=== PATIENT | male | born 1965 | race Caucasian/White ===

== ENCOUNTER 2016-08-19 08:28 | Outpatient (CLI) | payer SELFPAY | END 2016-08-19 08:30 | LOC: LAB 08:28 | PROVIDERS: ATTEND Internal Medicine Cardiovascular Disease | DX: Z51.81 Encounter for therapeutic drug level monitoring (principal); Z79.01 Long term (current) use of anticoagulants; I48.2 Chronic atrial fibrillation; Z95.4 Presence of other heart-valve replacement | CPT/HCPCS: 36415; 85610 ==

== ENCOUNTER 2016-08-27 08:29 | Outpatient (CLI) | payer SELFPAY | END 2016-08-27 08:30 | LOC: LAB 08:29 | PROVIDERS: ATTEND Internal Medicine Cardiovascular Disease | DX: I48.2 Chronic atrial fibrillation (principal); Z95.4 Presence of other heart-valve replacement | CPT/HCPCS: 36415; 85610 ==

== ENCOUNTER 2016-09-08 10:04 | Outpatient (CLI) | payer SELFPAY | END 2016-09-08 10:05 | LOC: LAB 10:04 | PROVIDERS: ATTEND Internal Medicine Cardiovascular Disease | DX: I48.2 Chronic atrial fibrillation (principal); Z95.2 Presence of prosthetic heart valve | CPT/HCPCS: 36415; 85610 ==

== ENCOUNTER 2016-09-13 09:22 | Outpatient (CLI) | payer SELFPAY | END 2016-09-13 09:23 | LOC: LAB 09:22 | PROVIDERS: ATTEND Internal Medicine Cardiovascular Disease | DX: Z51.81 Encounter for therapeutic drug level monitoring (principal); Z95.4 Presence of other heart-valve replacement; Z79.01 Long term (current) use of anticoagulants | CPT/HCPCS: 36415; 85610 ==

== ENCOUNTER 2016-09-22 08:33 | Outpatient (CLI) | payer SELFPAY | END 2016-09-22 08:34 | LOC: LAB 08:33 | PROVIDERS: ATTEND Internal Medicine Cardiovascular Disease | DX: I48.2 Chronic atrial fibrillation (principal); Z95.4 Presence of other heart-valve replacement | CPT/HCPCS: 36415; 85610 ==

== ENCOUNTER 2016-10-11 08:42 | Outpatient (CLI) | payer SELFPAY | END 2016-10-11 08:43 | LOC: LAB 08:42 | PROVIDERS: ATTEND Internal Medicine Cardiovascular Disease | DX: Z51.81 Encounter for therapeutic drug level monitoring (principal); Z79.01 Long term (current) use of anticoagulants; I48.2 Chronic atrial fibrillation; Z95.4 Presence of other heart-valve replacement | CPT/HCPCS: 36415; 85610 ==

== ENCOUNTER 2016-10-29 08:51 | Outpatient (CLI) | payer SELFPAY | END 2016-10-29 08:52 | LOC: LAB 08:51 | PROVIDERS: ATTEND Internal Medicine Cardiovascular Disease | DX: Z51.81 Encounter for therapeutic drug level monitoring (principal); Z79.01 Long term (current) use of anticoagulants; I48.2 Chronic atrial fibrillation; Z95.4 Presence of other heart-valve replacement | CPT/HCPCS: 36415; 85610 ==

== ENCOUNTER 2016-11-23 08:34 | Outpatient (CLI) | payer SELFPAY | END 2016-11-23 08:35 | LOC: LAB 08:34 | PROVIDERS: ATTEND Internal Medicine Cardiovascular Disease | DX: Z51.81 Encounter for therapeutic drug level monitoring (principal); Z79.01 Long term (current) use of anticoagulants; I48.2 Chronic atrial fibrillation; Z95.4 Presence of other heart-valve replacement | CPT/HCPCS: 36415; 85610 ==

== ENCOUNTER 2016-12-20 09:30 | Outpatient (CLI) | payer SELFPAY | END 2016-12-20 09:31 | LOC: LAB 09:30 | PROVIDERS: ATTEND Internal Medicine Cardiovascular Disease | DX: I48.2 Chronic atrial fibrillation (principal); Z95.4 Presence of other heart-valve replacement | CPT/HCPCS: 36415; 85610 ==

== ENCOUNTER 2017-01-20 08:15 | Outpatient (CLI) | payer SELFPAY | END 2017-01-20 09:00 | LOC: LAB 08:15 | PROVIDERS: ATTEND Internal Medicine Cardiovascular Disease | DX: I48.2 Chronic atrial fibrillation (principal); Z95.4 Presence of other heart-valve replacement | CPT/HCPCS: 36415; 85610 ==

== ENCOUNTER 2017-02-21 08:09 | Outpatient (CLI) | payer SELFPAY | END 2017-02-21 08:15 | LOC: LAB 08:09 | PROVIDERS: ATTEND Internal Medicine Cardiovascular Disease | DX: I48.2 Chronic atrial fibrillation (principal); Z95.4 Presence of other heart-valve replacement | CPT/HCPCS: 36415; 85610 ==

== ENCOUNTER 2017-03-25 08:33 | Outpatient (CLI) | payer SELFPAY | END 2017-03-25 08:34 | LOC: LAB 08:33 | PROVIDERS: ATTEND Internal Medicine Cardiovascular Disease | DX: I48.2 Chronic atrial fibrillation (principal); Z95.4 Presence of other heart-valve replacement | CPT/HCPCS: 36415; 85610 ==

== ENCOUNTER 2017-04-06 08:30 | Outpatient (CLI) | payer SELFPAY | END 2017-04-06 08:32 | LOC: LAB 08:30 | PROVIDERS: ATTEND Internal Medicine Cardiovascular Disease | DX: I48.2 Chronic atrial fibrillation (principal); Z95.4 Presence of other heart-valve replacement | CPT/HCPCS: 36415; 85610 ==

== ENCOUNTER 2017-04-21 08:34 | Outpatient (CLI) | payer SELFPAY | END 2017-04-21 08:35 | LOC: LAB 08:34 | PROVIDERS: ATTEND Internal Medicine Cardiovascular Disease | DX: I48.2 Chronic atrial fibrillation (principal); Z95.4 Presence of other heart-valve replacement | CPT/HCPCS: 36415; 85610 ==

== ENCOUNTER → 2017-05-23 | Outpatient (CLI) | payer SELFPAY | LOC: LAB 08:59 | PROVIDERS: ATTEND Internal Medicine Cardiovascular Disease | DX: I48.2 Chronic atrial fibrillation (principal); Z95.2 Presence of prosthetic heart valve | CPT/HCPCS: 36415; 85610 ==

== ENCOUNTER 2017-06-03 08:50 | Outpatient (CLI) | payer SELFPAY | END 2017-06-03 08:52 | LOC: LAB 08:50 | PROVIDERS: ATTEND Internal Medicine Cardiovascular Disease | DX: I48.2 Chronic atrial fibrillation (principal); Z95.4 Presence of other heart-valve replacement | CPT/HCPCS: 36415; 85610 ==

== ENCOUNTER 2017-06-20 09:13 | Outpatient (CLI) | payer SELFPAY | END 2017-06-20 09:14 | LOC: LAB 09:13 | PROVIDERS: ATTEND Internal Medicine Cardiovascular Disease | DX: I48.2 Chronic atrial fibrillation (principal); Z95.4 Presence of other heart-valve replacement | CPT/HCPCS: 36415; 85610 ==

== ENCOUNTER 2017-07-14 08:54 | Outpatient (CLI) | payer SELFPAY | END 2017-07-14 10:02 | LOC: LAB 08:54 | PROVIDERS: ATTEND Internal Medicine Cardiovascular Disease | DX: I48.2 Chronic atrial fibrillation (principal); Z95.4 Presence of other heart-valve replacement | CPT/HCPCS: 36415; 85610 ==

== ENCOUNTER 2017-08-19 13:21 | Outpatient (CLI) | payer OTHER | END 2017-08-19 13:22 | LOC: LAB 13:21 | PROVIDERS: ATTEND Internal Medicine Cardiovascular Disease | DX: I48.2 Chronic atrial fibrillation (principal); Z95.4 Presence of other heart-valve replacement | CPT/HCPCS: 36415; 85610 ==

== ENCOUNTER 2017-08-30 13:41 | Outpatient (CLI) | payer OTHER | END 2017-08-30 13:42 | LOC: LAB 13:41 | PROVIDERS: ATTEND Internal Medicine Cardiovascular Disease | DX: I48.2 Chronic atrial fibrillation (principal); Z95.4 Presence of other heart-valve replacement | CPT/HCPCS: 36415; 85610 ==

== ENCOUNTER 2017-09-01 09:32 | Outpatient (CLI) | payer OTHER | END 2017-09-01 09:33 | LOC: LAB 09:32 | PROVIDERS: ATTEND Internal Medicine Cardiovascular Disease | DX: I48.2 Chronic atrial fibrillation (principal); Z95.4 Presence of other heart-valve replacement | CPT/HCPCS: 36415; 85610 ==

== ENCOUNTER 2017-09-02 14:36 | Outpatient (CLI) | payer OTHER | END 2017-09-02 14:37 | LOC: LAB 14:36 | PROVIDERS: ATTEND Internal Medicine Cardiovascular Disease | DX: I48.2 Chronic atrial fibrillation (principal); Z95.4 Presence of other heart-valve replacement | CPT/HCPCS: 36415; 85610 ==

== ENCOUNTER 2017-09-05 15:24 | Outpatient (CLI) | payer OTHER | END 2017-09-05 15:26 | LOC: LAB 15:24 | PROVIDERS: ATTEND Internal Medicine Cardiovascular Disease | DX: I48.2 Chronic atrial fibrillation (principal); Z95.4 Presence of other heart-valve replacement | CPT/HCPCS: 36415; 85610 ==

== ENCOUNTER 2017-09-07 08:55 | Outpatient (CLI) | payer OTHER | END 2017-09-07 08:56 | LOC: LAB 08:55 | PROVIDERS: ATTEND Internal Medicine Cardiovascular Disease | DX: I48.2 Chronic atrial fibrillation (principal); Z95.4 Presence of other heart-valve replacement | CPT/HCPCS: 36415; 85610 ==

== ENCOUNTER 2017-09-09 08:52 | Outpatient (CLI) | payer OTHER | END 2017-09-09 08:53 | LOC: LAB 08:52 | PROVIDERS: ATTEND Internal Medicine Cardiovascular Disease | DX: I48.2 Chronic atrial fibrillation (principal); Z95.4 Presence of other heart-valve replacement | CPT/HCPCS: 36415; 85610 ==

== ENCOUNTER 2017-09-12 09:07 | Outpatient (CLI) | payer OTHER | END 2017-09-12 09:10 | LOC: LAB 09:07 | PROVIDERS: ATTEND Internal Medicine Cardiovascular Disease | DX: I48.2 Chronic atrial fibrillation (principal); Z95.4 Presence of other heart-valve replacement | CPT/HCPCS: 36415; 85610 ==

== ENCOUNTER 2017-09-20 09:10 | Outpatient (CLI) | payer OTHER | END 2017-09-20 09:11 | LOC: LAB 09:10 | PROVIDERS: ATTEND Internal Medicine Cardiovascular Disease | DX: I48.2 Chronic atrial fibrillation (principal); Z95.4 Presence of other heart-valve replacement | CPT/HCPCS: 36415; 85610 ==

== ENCOUNTER 2017-09-27 08:48 | Outpatient (CLI) | payer OTHER | END 2017-09-27 08:50 | LOC: LAB 08:48 | PROVIDERS: ATTEND Internal Medicine Cardiovascular Disease | DX: I48.2 Chronic atrial fibrillation (principal); Z95.4 Presence of other heart-valve replacement | CPT/HCPCS: 36415; 85610 ==

== ENCOUNTER 2017-10-06 09:04 | Outpatient (CLI) | payer OTHER | END 2017-10-06 09:05 | LOC: LAB 09:04 | PROVIDERS: ATTEND Internal Medicine Cardiovascular Disease | DX: Z95.4 Presence of other heart-valve replacement (principal) | CPT/HCPCS: 36415; 85610 ==

== ENCOUNTER 2017-10-21 11:03 | Outpatient (CLI) | payer OTHER | END 2017-10-21 11:04 | LOC: LAB 11:03 | PROVIDERS: ATTEND Internal Medicine Cardiovascular Disease | DX: Z95.4 Presence of other heart-valve replacement (principal) | CPT/HCPCS: 36415; 85610 ==

== ENCOUNTER 2017-10-24 10:13 | Outpatient (CLI) | payer OTHER | END 2017-10-24 10:14 | LOC: LAB 10:13 | PROVIDERS: ATTEND Internal Medicine Cardiovascular Disease | DX: Z95.4 Presence of other heart-valve replacement (principal) | CPT/HCPCS: 36415; 85610 ==

== ENCOUNTER 2017-11-02 08:41 | Outpatient (CLI) | payer OTHER | END 2017-11-02 08:42 | LOC: LAB 08:41 | PROVIDERS: ATTEND Internal Medicine Cardiovascular Disease | DX: Z95.4 Presence of other heart-valve replacement (principal) | CPT/HCPCS: 36415; 85610 ==

== ENCOUNTER 2017-11-10 10:07 | Outpatient (CLI) | payer OTHER | END 2017-11-10 10:10 | LOC: LAB 10:07 | PROVIDERS: ATTEND Internal Medicine Cardiovascular Disease | DX: Z95.4 Presence of other heart-valve replacement (principal) | CPT/HCPCS: 36415; 85610 ==

== ENCOUNTER 2017-11-25 08:55 | Outpatient (CLI) | payer OTHER | END 2017-11-25 08:56 | LOC: LAB 08:55 | PROVIDERS: ATTEND Internal Medicine Cardiovascular Disease | DX: Z95.4 Presence of other heart-valve replacement (principal) | CPT/HCPCS: 36415; 85610 ==

== ENCOUNTER 2017-12-16 11:38 | Outpatient (CLI) | payer OTHER | END 2017-12-16 12:29 | LOC: LAB 11:38 | PROVIDERS: ATTEND Internal Medicine Cardiovascular Disease | DX: Z95.4 Presence of other heart-valve replacement (principal) | CPT/HCPCS: 36415; 85610 ==

== ENCOUNTER 2017-12-19 07:21 | Outpatient (CLI) | payer OTHER | END 2017-12-19 12:02 | LOC: LAB 07:21 | PROVIDERS: ATTEND Internal Medicine Cardiovascular Disease | DX: Z95.4 Presence of other heart-valve replacement (principal) | CPT/HCPCS: 36415; 85610 ==

== ENCOUNTER 2018-01-09 14:03 | Outpatient (CLI) | payer OTHER | END 2018-01-09 14:04 | LOC: LAB 14:03 | PROVIDERS: ATTEND Internal Medicine Cardiovascular Disease | DX: Z95.4 Presence of other heart-valve replacement (principal) | CPT/HCPCS: 36415; 85610 ==

== ENCOUNTER 2018-01-16 08:04 | Outpatient (CLI) | payer OTHER | END 2018-01-16 08:05 | LOC: LAB 08:04 | PROVIDERS: ATTEND Internal Medicine Cardiovascular Disease | DX: Z95.4 Presence of other heart-valve replacement (principal) | CPT/HCPCS: 36415; 85610 ==

== ENCOUNTER 2018-02-03 14:25 | Outpatient (CLI) | payer OTHER | END 2018-02-03 14:26 | LOC: LAB 14:25 | PROVIDERS: ATTEND Internal Medicine Cardiovascular Disease | DX: Z95.4 Presence of other heart-valve replacement (principal) | CPT/HCPCS: 36415; 85610 ==

== ENCOUNTER 2018-02-22 08:27 | Outpatient (CLI) | payer OTHER | END 2018-02-22 08:30 | LOC: LAB 08:27 | PROVIDERS: ATTEND Internal Medicine Cardiovascular Disease | DX: Z95.4 Presence of other heart-valve replacement (principal) | CPT/HCPCS: 36415; 85610 ==

== ENCOUNTER 2018-03-28 09:54 | Outpatient (CLI) | payer OTHER | END 2018-03-28 09:55 | LOC: LAB 09:54 | PROVIDERS: ATTEND Internal Medicine Cardiovascular Disease | DX: Z95.4 Presence of other heart-valve replacement (principal) | CPT/HCPCS: 36415; 85610 ==

== ENCOUNTER 2018-04-24 09:02 | Outpatient (CLI) | payer OTHER | END 2018-04-24 09:04 | LOC: LAB 09:02 | PROVIDERS: ATTEND Internal Medicine Cardiovascular Disease | DX: I48.2 Chronic atrial fibrillation (principal); Z95.4 Presence of other heart-valve replacement | CPT/HCPCS: 36415; 85610 ==

== ENCOUNTER 2018-05-12 08:37 | Outpatient (CLI) | payer OTHER | END 2018-05-12 08:40 | LOC: LAB 08:37 | PROVIDERS: ATTEND Internal Medicine Cardiovascular Disease | DX: I48.2 Chronic atrial fibrillation (principal); Z95.4 Presence of other heart-valve replacement | CPT/HCPCS: 36415; 85610 ==

== ENCOUNTER 2018-05-20 11:08 | Outpatient (CLI) | payer OTHER | END 2018-05-20 11:10 | LOC: LAB 11:08 | PROVIDERS: ATTEND Internal Medicine Cardiovascular Disease | DX: I48.2 Chronic atrial fibrillation (principal); Z95.4 Presence of other heart-valve replacement | CPT/HCPCS: 85610 ==

== ENCOUNTER 2018-06-16 08:16 | Outpatient (CLI) | payer OTHER | END 2018-06-16 08:22 | disposition home or self-care (01) | LOC: LAB 08:16 | PROVIDERS: ATTEND Internal Medicine Cardiovascular Disease | DX: I48.2 Chronic atrial fibrillation (principal); Z95.4 Presence of other heart-valve replacement | CPT/HCPCS: 36415; 85610 ==

== ENCOUNTER 2018-06-29 08:30 | Outpatient (CLI) | payer OTHER | END 2018-06-29 08:32 | LOC: LAB 08:30 | PROVIDERS: ATTEND Internal Medicine Cardiovascular Disease | DX: I48.2 Chronic atrial fibrillation (principal); Z95.4 Presence of other heart-valve replacement | CPT/HCPCS: 36415; 85610 ==

== ENCOUNTER 2018-07-11 11:10 | Outpatient (CLI) | payer OTHER | END 2018-07-11 11:11 | LOC: LAB 11:10 | PROVIDERS: ATTEND Internal Medicine Cardiovascular Disease | DX: I48.2 Chronic atrial fibrillation (principal); Z95.4 Presence of other heart-valve replacement | CPT/HCPCS: 36415; 85610 ==

== ENCOUNTER 2018-07-20 08:21 | Outpatient (CLI) | payer OTHER | END 2018-07-20 08:26 | disposition home or self-care (01) | LOC: LAB 08:21 | PROVIDERS: ATTEND Internal Medicine Cardiovascular Disease | DX: I48.2 Chronic atrial fibrillation (principal); Z95.4 Presence of other heart-valve replacement | CPT/HCPCS: 36415; 85610 ==

== ENCOUNTER 2018-08-07 08:44 | Outpatient (CLI) | payer OTHER | END 2018-08-07 08:46 | LOC: LAB 08:44 | PROVIDERS: ATTEND Internal Medicine Cardiovascular Disease | DX: I48.2 Chronic atrial fibrillation (principal); Z95.4 Presence of other heart-valve replacement | CPT/HCPCS: 36415; 85610 ==

== ENCOUNTER 2018-08-24 09:09 | Outpatient (CLI) | payer OTHER | END 2018-08-24 09:11 | LOC: LAB 09:09 | PROVIDERS: ATTEND Internal Medicine Cardiovascular Disease | DX: I48.2 Chronic atrial fibrillation (principal); Z95.4 Presence of other heart-valve replacement | CPT/HCPCS: 36415; 85610 ==

== ENCOUNTER 2018-09-15 08:54 | Outpatient (CLI) | payer OTHER | END 2018-09-15 09:00 | LOC: LAB 08:54 | PROVIDERS: ATTEND Internal Medicine Cardiovascular Disease | DX: I48.2 Chronic atrial fibrillation (principal); Z95.4 Presence of other heart-valve replacement | CPT/HCPCS: 36415; 85610 ==

== ENCOUNTER 2018-09-27 08:49 | Outpatient (CLI) | payer OTHER | END 2018-09-27 08:50 | LOC: LAB 08:49 | PROVIDERS: ATTEND Internal Medicine Cardiovascular Disease | DX: I48.2 Chronic atrial fibrillation (principal); Z95.4 Presence of other heart-valve replacement | CPT/HCPCS: 36415; 85610 ==

== ENCOUNTER 2018-10-12 08:49 | Outpatient (CLI) | payer OTHER | END 2018-10-12 08:50 | LOC: LAB 08:49 | PROVIDERS: ATTEND Internal Medicine Cardiovascular Disease | DX: I48.2 Chronic atrial fibrillation (principal); Z95.4 Presence of other heart-valve replacement | CPT/HCPCS: 36415; 85610 ==